=== PATIENT | male | born 1965 | race Caucasian/White ===

== ENCOUNTER 2017-01-30 21:54 | Emergency (ER) | payer SELFPAY ==
[~2017-01-30] VITALS: Ht 167.6 cm; Wt 99.4 kg
[2017-01-31 00:11] VITALS: BP 144/72
== END 2017-01-31 00:12 | disposition home or self-care (01) ==
LOC: ED 23:59
DX: M25.551 Pain in right hip (principal); K08.89 Other specified disorders of teeth and supporting structures; F17.210 Nicotine dependence, cigarettes, uncomplicated
CPT/HCPCS: 99284

== ENCOUNTER 2017-04-29 02:04 | Emergency (ER) | payer MEDICAID ==
[~2017-04-29] VITALS: Ht 172.7 cm; Wt 81.8 kg
[2017-04-29 02:41] LABS: HEMATOCRIT 43.1 % (39.2-51.8); HEMOGLOBIN 14.6 g/dL (13.7-18.0); WHITE BLOOD COUNT 9.7 x10^3/uL (3.4-10)
[2017-04-29 02:51] LABS: BLOOD UREA NITROGEN 11 mg/dL (7-18)
[2017-04-29 02:55] LABS: IS PT STATUS REG ER OR PRE ER? YES
[2017-04-29 05:44] VITALS: BP 130/64
== END 2017-04-29 05:47 | disposition home or self-care (01) ==
LOC: ED 02:23
DX: R07.89 Other chest pain (principal); F10.120 Alcohol abuse with intoxication, uncomplicated
CPT/HCPCS: 36415; 71010; 80048; 80307; 82040; 84484; 85025; 93005; 99285

== ENCOUNTER 2018-01-29 06:47 | Emergency (ER) | payer MEDICAID | END 2018-01-29 07:03 | disposition left against medical advice (07) | LOC: ED 06:57 | DX: R07.9 Chest pain, unspecified (principal); Z53.21 Procedure and treatment not carried out due to patient leaving prior to being seen by health care provider ==